=== PATIENT | male | born 2000 | race African-American/Black ===

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

== ENCOUNTER 2024-12-10 12:23 | Emergency (ER) | payer MEDICAID, OTHER ==
[~2024-12-10] VITALS: Ht 172.7 cm; Wt 63.6 kg
[2024-12-10 12:40] VITALS: TEMP 97.7
[2024-12-10 13:04] LABS: PLATELET COUNT (AUTO) 297 K/uL (150-450); RED BLOOD CELL COUNT(AUTO) 5.07 MIL/uL (4.50-5.90); RED CELL DISTRIBUTION WIDTH 15.3 % (11.5-14.5); WHITE BLOOD COUNT (AUTO) 13.1 K/uL (4.5-11.0)
[2024-12-10 13:07] LABS: CALCIUM, TOTAL 9.8 mg/dL (8.8-10.5); CREATININE 1.06 mg/dL (0.60-1.30); GLOMERULAR FILTR. RATE CALC > 60 mL/min (>60); GLUCOSE,RANDOM 103 mg/dL (70-110); SODIUM SERUM 141 mmol/L (136-145); UREA NITROGEN, BLOOD 13 mg/dL (7-18)
[2024-12-10 13:12] LABS: ASPARTATE AMINOTRANSFERASE 34.0 U/L (15-37); TOTAL PROTEIN, SERUM 8.0 g/dL (6.4-8.2)
[2024-12-10] MEDS ORDERED: SODIUM CHLORIDE 0.9% 100 ML ONE (13:21)
[2024-12-10] MEDS ORDERED: 0.9% SODIUM CHLORIDE 10 ML SYRINGE IVP ONE (13:21)
[2024-12-10] MEDS ORDERED: IOHEXOL 350 MG/ML 100 ML VIAL ONE (13:21)
[2024-12-10 13:35] LABS: RBC MORPHOLOGY COMMENT NORMAL RBC MORPH
[2024-12-10] MEDS: MORPHINE SULFATE 2 MG/ML SYRINGE IVP ONE (15:15)
[2024-12-10] MEDS: KETOROLAC TROMETHAMINE 30 MG/ML VIAL IVP ONE (15:15)
[2024-12-10] MEDS: ONDANSETRON HCL 4 MG/2 ML VIAL IVP ONE (15:15)
[2024-12-10] MEDS: FAMOTIDINE 20 MG/2 ML VIAL IVP ONE (15:15)
[2024-12-10] MEDS: MAGNESIUM SULFATE 1 GM in DEXTROSE 5%-WATER 50 ML IV ONE (15:15)
[2024-12-10] MEDS: SODIUM CHLORIDE 0.9% 1,000 ML IV ONE (15:18)
[2024-12-10 17:45] LABS: APPEARANCE,URINE CLEAR (CLEAR); GLUCOSE, URINE (UA) NEGATIVE (NEGATIVE); LEUKOCYTE ESTERASE ,URINE NEGATIVE (NEGATIVE); NITRATE,URINE NEGATIVE (NEGATIVE); OCCULT BLOOD,URINE NEGATIVE (NEGATIVE)
[2024-12-10 17:52] LABS: ALCOHOL, URINE DRUG SCREEN NEGATIVE (NEGATIVE); AMPHET/METH SCREEN,URINE NEGATIVE (NEGATIVE); BARBITURATE SCREEN, URINE NEGATIVE (NEGATIVE); CANNABINOID SCREEN,URINE POSITIVE (NEGATIVE); COCAINE SCREEN,URINE NEGATIVE (NEGATIVE); METHADONE SCREEN, URINE NEGATIVE (NEGATIVE); SPECIFIC GRAVITIY, URINE 1.030 (1.003-1.030)
[2024-12-10 17:53] LABS: PH,URINE DRUG SCREEN 8.0 (5.0-8.0)
[2024-12-10 18:10] LABS: SULFOSALICYLIC ACID,URINE Trace (Negative)
[2024-12-10] MEDS ORDERED: ONDA-104 PO (18:12)
[2024-12-10 18:23] VITALS: BP 110/71; PULSE 90; RESP 18; O2SAT 100
== END 2024-12-10 18:26 | disposition home or self-care (01) ==
LOC: EMS 12:40
DX: R10.9 Unspecified abdominal pain (principal); F10.90 Alcohol use, unspecified, uncomplicated; F12.90 Cannabis use, unspecified, uncomplicated; Z91.013 Allergy to seafood; Z79.899 Other long term (current) drug therapy; Y90.9 Presence of alcohol in blood, level not specified
CPT/HCPCS: 99285; 74177; 96365; 96375; 76705; 96366; 80048; 80076; 81002; 83690; 83735; 85025; 36415; 80307; J1885; G0480; Q9967; J3490; J2270; J2405; J7060; J3475; J7030; J7050; 81003